=== PATIENT | male | born 1990 | race Hispanic/Latino ===

== ENCOUNTER → 2016-10-15 | Outpatient (CLI) | payer OTHER ==
[~2016-10-15] MED LIST: ISOVUE-370 76% 100ML VIAL (Q9967) As Ordered ONE
--- NOTE | 2016-10-15 09:22 | REP ---
Clinical: "Cystic structure of the bladder." Technique: Axial precontrast, contrast enhanced, and delayed images of the abdomen and pelvis using 100 ml Isovue 370 intravenous contrast material with coronal and sagittal re-formations. Comparison: None. Findings: There is a presumed blind-ending tubular fluid filled nonenhancing structure in the right lower quadrant measuring greater than 5 cm length and 2.5 cm diameter extending into the right roxanne pelvis (images 89 - 107) with small amounts of mural calcification at its proximal, cranial end. Lesion remains fluid density on all series and appears related to vascular structures or urinary tract system. Differential diagnosis includes but is not limited to appendiceal mucocele. Liver, spleen, pancreas, gallbladder, bilateral adrenal glands and kidneys/ureters as well as bladder are all normal in all phases of enhancement. The enteric system is without obstruction or acute inflammatory process. The prostate gland is normal in size. The bladder is unremarkable and without cystic or soft tissue component/mass. No ascites. No free air. No intraperitoneal or retroperitoneal adenopathy. Abdominal aorta and vasculature appears normal. Musculoskeletal structures demonstrate chronic L5 spondylolysis without spondylolisthesis and there is no evidence for lytic lesion involving the visualized right femur. Impression: 1. Tubular fluid density structure in the right lower quadrant as detailed above. Differential diagnosis includes but is not limited to appendiceal mucocele. Lesion does not enhance and is unrelated to the vasculature or urinary tract system. 2. Chronic L5 spondylolysis without spondylolisthesis. 3. No obvious abnormality of the visualized right femur. Signed by Jan Ricks MD 10/15/2016 09:13 A
== END ==
LOC: M RAD 08:07
PROVIDERS: ATTEND Physician Assistant
DX: M25.551 Pain in right hip (principal); R93.49 Abnormal radiologic findings on diagnostic imaging of other urinary organs; M47.816 Spondylosis without myelopathy or radiculopathy, lumbar region
CPT/HCPCS: 74178; Q9967

== ENCOUNTER → 2017-04-11 | Outpatient (CLI) | payer OTHER ==
--- NOTE | 2017-04-11 10:14 | REP ---
Clinical: Fall on outstretched hand with pain and suspected fracture by x-ray. Technique: Axial images through the right wrist with coronal and sagittal re-formations. Findings: There is a small nondisplaced fracture along the dorsal aspect of the triquetrum. Fracture fragment measures approximately 6.0 x 4.8 x 1.8 mm and examination demonstrates moderate amount of swelling in the dorsum. The remaining carpal bones as well as the visualized metacarpal bones and distal aspects of the radius and ulna are intact. There is no associated capitate or lunate fracture dislocation. The scaphoid bone is normal. The soft tissue structures to the hand appear intact. Impression: Small nondisplaced fracture along the posterior aspect of the triquetrum. Associated dorsal soft tissue swelling. Signed by Jan Ricks MD 04/11/2017 10:13 A
== END ==
LOC: M RAD 09:35
PROVIDERS: ATTEND Physician Assistant
DX: S62.111A Displaced fracture of triquetrum [cuneiform] bone, right wrist, initial encounter for closed fracture (principal); X58.XXXA Exposure to other specified factors, initial encounter; Y92.89 Other specified places as the place of occurrence of the external cause; Y93.89 Activity, other specified; Y99.8 Other external cause status